=== PATIENT | female | born 1975 | race Caucasian/White ===

== ENCOUNTER 2019-01-07 20:33 | Emergency (ER) | payer OTHER ==
[2019-01-07 20:44] VITALS: BMI 26.5
[2019-01-07] MEDS ORDERED: RANITIDINE HCL 150 MG TABLET (FP) PO ONE (23:06)
[2019-01-07] MEDS ORDERED: IBUPROFEN 600 MG TABLET (FP) PO ONE (23:06)
--- NOTE | 2019-01-07 23:09 | PDOC ---
History of Present Illness - General Chief Complaint: Chest Pain Stated Complaint: CHEST PAIN Time Seen by Provider: 01/07/19 22:43 History Source: Patient Exam Limitations: No Limitations - History of Present Illness Initial Comments: 01/07/19 22:04 Patient is a 43-year-old female with history of hypothyroid here with complaints of chest pain 3 days. States her pain is across the anterior chest which radiates to her back and described as a pressure 9/10. Also complains of a left-sided under her breasts chest pain which is burning 9/10 with no association with nausea or vomiting. States she has had dizziness, lightheadedness since this afternoon. 2 days ago took Advil pain goes away for 2 hours and returns. No prior episode of this type of pain. She is not on control, no recent travel, no leg swelling. Family history negative for CVA/MN/ PE/DVT. PMD: Dr. Castro PMHx: Hypothyroid, C/S 3, thyroidectomy, carpal tunnel surgery, ALL: None GENERAL/CONSTITUTIONAL: No fever or chills. No weakness. No weight change. HEAD, EYES, EARS, NOSE AND THROAT: No change in vision. No ear pain or discharge. No sore throat. CARDIOVASCULAR: (+) chest pain or shortness of breath.] RESPIRATORY: No cough, wheezing, or hemoptysis. GASTROINTESTINAL: No nausea, vomiting, diarrhea or constipation. No rectal bleeding. GENITOURINARY: No dysuria, frequency, or change in urination. MUSCULOSKELETAL: (+) joint or muscle swelling or pain. No neck or back pain. SKIN AND BREASTS: No rash or easy bruising. NEUROLOGIC: No headache, vertigo, loss of consciousness, or loss of sensation. PSYCHIATRIC: No depression or anxiety. ENDOCRINE: No increased thirst. No abnormal weight change. HEMATOLOGIC/LYMPHATIC: No anemia, easy bleeding, or history of blood clots. ALLERGIC/IMMUNOLOGIC: No hives or skin allergy. No latex allergy. GENERAL: The patient is awake, alert, and fully oriented, in no acute distress. HEAD: Normal with no signs of trauma. EYES: Pupils equal, round and reactive to light, extraocular movements intact, sclera anicteric, conjunctiva clear. ENT: Ears normal, nares patent, oropharynx clear without exudates. Moist mucous membranes. NECK: Normal range of motion, supple without lymphadenopathy, JVD, or masses. LUNGS: Breath sounds equal, clear to auscultation bilaterally. No wheezes, and no crackles. HEART: Regular rate and rhythm, normal S1 and S2 without murmur, rub. ABDOMEN: Soft, nontender, normoactive bowel sounds. No guarding, no rebound. No masses. EXTREMITIES: Normal range of motion, no edema. No clubbing or cyanosis. No cords, erythema, or tenderness. NEUROLOGICAL: Cranial nerves II through XII grossly intact. Normal speech, normal gait. PSYCH: Normal mood, normal affect. SKIN: Warm, Dry, normal turgor, no rashes or lesions noted. Past History - Past Medical History Allergies/Adverse Reactions: Allergies Allergy/AdvReac Type Severity Reaction Status Date / Time No Known Allergies Allergy Verified 01/07/19 20:44 Home Medications: Ambulatory Orders Levothyroxine [Synthroid -] 100 mcg PO DAILY 11/03/14 Omeprazole [Prilosec (RX)] 20 mg PO DAILY 11/03/14 Ibuprofen [Motrin -] 400 mg PO QID PRN #28 tablet 12/13/14 Anemia: Yes COPD: No Thyroid Disease: Yes (hypothyroid) - Surgical History Abdominal Surgery: Yes (polyp removed in stomach) - Immunization History Immunization Up to Date: Yes - Suicide/Smoking/Psychosocial Hx Smoking History: Never smoked Have you smoked in the past 12 months: No Information on smoking cessation initiated: No Hx Alcohol Use: No Drug/Substance Use Hx: No Substance Use Type: None *Physical Exam - Vital Signs Last Vital Signs Temp Pulse Resp BP Pulse Ox 98.1 F 83 18 128/81 98 01/08/19 00:27 01/08/19 00:27 01/08/19 00:27 01/08/19 00:27 01/08/19 00:27 Moderate Sedation - Procedure Monitoring Vital Signs: Procedure Monitoring Vital Signs Temperature 98.1 F 01/08/19 00:27 Pulse Rate 83 01/08/19 00:27 Respiratory Rate 18 01/08/19 00:27 Blood Pressure 128/81 01/08/19 00:27 O2 Sat by Pulse Oximetry (%) 98 01/08/19 00:27 ED Treatment Course - LABORATORY CBC & Chemistry Diagram: 01/07/19 23:15 01/07/19 23:15 - ADDITIONAL ORDERS Additional order review: Laboratory Results 01/07/19 01/07/19 23:20 23:15 Sodium 139 Potassium 3.9 Chloride 106 Carbon Dioxide 28 Anion Gap 5 L BUN 13 Creatinine 0.8 Creat Clearance w eGFR 77.57 Random Glucose 103 Calcium 9.2 Total Bilirubin 0.2 AST 14 L ALT 28 Alkaline Phosphatase 79 Creatine Kinase 63 Troponin I < 0.02 Total Protein 7.4 Albumin 3.6 Lipase 192 TSH 1.69 Serum , Qual Negative 01/07/19 23:15 RBC 4.76 MCV 85.1 MCHC 34.4 RDW 13.9 D MPV 3.0 L Neutrophils % 44.4 Lymphocytes % 43.6 H D Monocytes % 9.5 Eosinophils % 1.7 Basophils % 0.8 - RADIOLOGY Radiology Studies Ordered: Category Date Time Status CHEST PA & LAT [RAD] Stat Radiology 01/08/19 00:07 Taken - Medications Given in the ED: ED Medications Discontinued Medications Generic Name Dose Route Start Last Admin Trade Name Freq PRN Reason Stop Dose Admin Al Hydroxide/Mg Hydroxide 30 ml 01/08/19 00:29 01/08/19 00:50 Mylanta Oral Suspension - PO 01/08/19 00:30 30 ml ONCE ONE Administration Ibuprofen 600 mg 01/07/19 23:06 01/08/19 00:50 Motrin - PO 01/07/19 23:07 Not Given ONCE ONE Ranitidine HCl 300 mg 01/07/19 23:06 01/08/19 00:50 Zantac - PO 01/07/19 23:07 300 mg ONCE ONE Administration Medical Decision Making - Medical Decision Making 01/07/19 22:04 Patient is a 43-year-old female with history of hypothyroid here with complaints of chest pain 3 days. States her pain is across the anterior chest which radiates to her back and described as a pressure 9/10. Also complains of a left-sided under her breasts chest pain which is burning 9/10 with no association with nausea or vomiting. States she has had dizziness, lightheadedness since this afternoon. 2 days ago took Advil pain goes away for 2 hours and returns. No prior episode of this type of pain. She is not on control, no recent travel, no leg swelling. Family history negative for CVA/MN/ PE/DVT. Patient with atypical chest pain, no concerns for ACS, she is PERC negative thus no concerns for PE. Most likely GI will give Zantac. Labs include troponin, EKG, chest x-ray. EKG: SR rate 18, NAD, no ST-T wave changes Troponin is negative no acute findings on lab work, normal TSH. Chest x-ray negative for acute disease Selected Entries 01/08/19 00:27 Temperature 98.1 F Pulse Rate [ 83 Right Apical] Respiratory 18 Rate Blood Pressure 128/81 [Left Arm] O2 Sat by Pulse 98 Oximetry (%) I discussed the physical exam findings, ancillary test results and final diagnoses with the patient. I answered all of the patient's questions. The patient was satisfied with the care received and felt comfortable with the discharge plan and treatment plan. The Patient agrees to follow up with the primary care physician within 24-72 hours. *DC/Admit/Observation/Transfer Diagnosis at time of Disposition: Chest pain Qualifiers: Chest pain type: unspecified Qualified Code(s): R07.9 - Chest pain, unspecified - Discharge Dispostion Disposition: HOME Condition at time of disposition: Stable - Referrals - Patient Instructions Printed Discharge Instructions: DI for Atypical Chest Pain Additional Instructions: Your Discharge Instructions: You must call primary care physician within 24 hours to arrange follow-up. Return to the Emergency Department with any new, persistent or worsening symptoms, for fever, chills, SOB, dizziness or any other concerning changes that may occur. He was follow-up with her primary care doctor for further evaluation if her chest pain continuous. - Post Discharge Activity
[2019-01-07 23:27] LABS: BASO % 0.8 % (0-2.0); EOS % 1.7 % (0-4.5); HEMATOCRIT 40.5 % (32.4-45.2); HEMOGLOBIN 13.9 GM/dL (10.7-15.3); LYMPH % 43.6 % (8-40); MCH 29.2 pg (25.7-33.7); MCHC 34.4 g/dl (32.0-36.0); MEAN CELL VOLUME 85.1 fl (80-96); MONO % 9.5 % (3.8-10.2); NEUT % 44.4 % (42.8-82.8); RBC 4.76 M/mm3 (3.60-5.2); RDW 13.9 % (11.6-15.6); WHITE BLOOD COUNT 4.7 K/mm3 (4.0-10.0)
[2019-01-07 23:58] LABS: PLATELET COUNT 273 K/MM3 (134-434); PLATELET ESTIMATE ADEQUATE
[2019-01-08 00:03] LABS: ALBUMIN 3.6 g/dl (3.4-5.0); ALK PHOS 79 U/L (45-117); ANION GAP 5 MMOL/L (8-16); BILIRUBIN,TOTAL 0.2 mg/dL (0.2-1); BLOOD UREA NITROGEN 13 mg/dL (7-18); CALCIUM 9.2 mg/dL (8.5-10.1); CHLORIDE 106 mmol/L (98-107); CO2 28 mmol/L (21-32); CREATININE 0.8 mg/dL (0.55-1.3); GLUCOSE,RANDOM 103 mg/dL (74-106); LIPASE 192 U/L (73-393); POTASSIUM 3.9 mmol/L (3.5-5.1); SGOT/AST 14 U/L (15-37); SGPT/ALT 28 U/L (13-61); SODIUM 139 mmol/L (136-145); TOT PROT 7.4 g/dl (6.4-8.2)
[2019-01-08 00:29] VITALS: BP 128/81; PULSE 83; TEMP 98.1
[2019-01-08] MEDS ORDERED: MAG HYDROX/AL HYDROX/SIMETH 30 ML UNIT-DOSE CUP PO ONE (00:29)
[2019-01-08] MEDS ORDERED: RANITIDINE HCL 150 MG TABLET (FP) ONE (00:31)
[2019-01-08] MEDS ORDERED: MAG HYDROX/AL HYDROX/SIMETH 30 ML UNIT-DOSE CUP ONE (00:31)
--- NOTE | 2019-01-08 10:12 | EKG ---
Test Reason : Blood Pressure : / mmHG Vent. Rate : 080 BPM Atrial Rate : 080 BPM P-R Int : 156 ms QRS Dur : 082 ms QT Int : 382 ms P-R-T Axes : 073 028 029 degrees QTc Int : 440 ms NORMAL SINUS RHYTHM POSSIBLE LEFT ATRIAL ENLARGEMENT BORDERLINE ECG WHEN COMPARED WITH ECG OF 13-DEC-2014 16:55, NO SIGNIFICANT CHANGE WAS FOUND Confirmed by GEORGE HODGE MD ([id number]) on 01/08/2019 10:12:12 AM Referred By: Confirmed By:GEORGE HODGE MD
== END 2019-01-08 00:52 | disposition home or self-care (01) ==
LOC: JER 20:33
DX: R07.9 Chest pain, unspecified (principal); E03.9 Hypothyroidism, unspecified
CPT/HCPCS: 36415; 71046-TC-FY; 80053; 82550; 83690; 84443; 84484; 84703; 85025; 93005; 93010; 99281-25

== ENCOUNTER 2019-09-03 07:57 | Emergency (ER) | payer OTHER ==
[2019-09-03 08:03] VITALS: TEMP 98.1; BMI 28.3
--- NOTE | 2019-09-03 08:46 | PDOC ---
History of Present Illness - General Chief Complaint: Vaginal Bleeding Stated Complaint: ABDOMINAL AND BACK PAIN,HEAVY BLEEDING Time Seen by Provider: 09/03/19 08:29 - History of Present Illness Initial Comments: Nithya Koehler is a 44yo woman who presents with one month of light vaginal bleeding that has worsened over the past 3 days. She states that she noticed spotting about a month ago, and she initially thought it was her period. When the bleeding did not stop she attempted to make an appointment with her scrap drop operator but was unable to do so. She saw her PMD and was given an unknown medication for 4 days that stopped the bleeding. As soon as she stopped taking the medication, the bleeding returned heavier than before. Ms Koehler reports that over the past 3 days, the bleeding has been increasingly heavy; she has needed to change her pad every 15-20 minutes today. She additionally reports low abdominal and low back cramping pain over the past 3. She denies any fever, chills, dysuria, change in bowel habits, or other recent symptoms. She reports that she had a procedure to prevent years ago but is not sure what it was. Past History - Past Medical History Allergies/Adverse Reactions: Allergies Allergy/AdvReac Type Severity Reaction Status Date / Time No Known Allergies Allergy Verified 01/07/19 20:44 Home Medications: Ambulatory Orders Levothyroxine [Synthroid -] 100 mcg PO DAILY 11/03/14 Omeprazole [Prilosec (RX)] 20 mg PO DAILY 11/03/14 Ibuprofen [Motrin -] 400 mg PO QID PRN #28 tablet 12/13/14 Anemia: Yes COPD: No Thyroid Disease: Yes (hypothyroid) - Surgical History Abdominal Surgery: Yes (polyp removed in stomach) - Immunization History Immunization Up to Date: Yes - Psycho Social/Smoking Cessation Hx Smoking History: Never smoked Have you smoked in the past 12 months: No Information on smoking cessation initiated: No Hx Alcohol Use: No Drug/Substance Use Hx: No Substance Use Type: None Review of Systems - Review of Systems Comments:: General: No fevers, no chills, no weight or appetite change, no malaise HEENT: No changes in vision, no changes in hearing, no congestion, no sore throat CV: No chest pain, no palpitations, no LE edema Pulm: No SOB, no cough, no wheezing GI: No nausea or vomiting, no change in bowel habits, no melena : No frequency, no urgency, no dysuria Musc: No back pain, no joint swelling, no recent injury Skin: No rash, no lesions, no erythema Endo: No excessive thirst, no heat/cold intolerance Heme: No unusual bruising or bleeding, no swollen glands Neuro: No syncope, no numbness/tingling, no focal weakness Vasc: No claudication Psych: No recent change in mood, no SI or HI *Physical Exam - Vital Signs Last Vital Signs Temp Pulse Resp BP Pulse Ox 98.1 F 93 H 16 109/65 99 09/03/19 07:59 09/03/19 07:59 09/03/19 07:59 09/03/19 07:59 09/03/19 07:59 - Physical Exam Comments: General: Comfortable, no acute distress HEENT: Atraumatic, PERRL, EOMI, MMM, voice normal Cards: RRR, no murmur appreciated Pulm: Comfortable on room air, clear to auscultation bilaterally Abd: Soft, mild suprapubic and b/l lower abdominal tenderness to deep palpation , nondistended : No CVA tenderness. Normal external genitalia. Vaginal canal w/ pooling dark red blood, no CMT, no adnexal TTP Ext: Atraumatic. No LE edema. ROM intact. WWP Skin: Normal color, no rashes or lesions Neuro: A&Ox3, CN grossly intact, normal speech, motor/sensory grossly intact and symmetric Psych: Mood appropriate to situation ED Treatment Course - LABORATORY CBC & Chemistry Diagram: 09/03/19 09:21 09/03/19 09:21 Medical Decision Making - Medical Decision Making 09/03/19 08:48 Nithya Koehler is a 44yo woman who presents with one month of light vaginal bleeding that has worsened over the past 3 days, now requiring that she change her pad every 15-20 minutes today. She states that she was given a medication by her PMD for several days that stopped the bleeding last week but is unsure what it was. - Ddx includes normal menstruation, beginning of perimenopause, ( ectopic or miscarriage), fibroids. Less likely ovarian pathology without localized pain - CBC, CMP, coags, T&S, preg 09/03/19 10:08 - CBC, coags, chemistry unremarkable. Hgb 14.4, no anemia currently - Preg pending - TVUS to be completed 09/03/19 11:19 - TVUS completed. Indicates small right ovarian cyst 1.4 x 0.5cm but no other abnormalities - Preg negative - Will reassess, d/c to follow up with her PMD and gynecology if feeling improved 09/03/19 11:32 - Pain has now resolved - Discussed follow up with gynecology, PMD. Discussed return precautions. Pt understands and agrees with this plan Discussed with Dr Jenniffer Preciado PGY2 Discharge - Discharge Information Problems reviewed: Yes Clinical Impression/Diagnosis: Vaginal bleeding Condition: Stable Disposition: HOME - Admission No - Follow up/Referral Referrals: Jitendra Whittaker [Primary Care Provider] - - Patient Discharge Instructions Patient Printed Discharge Instructions: Menopause, DI for Vaginal Bleeding Additional Instructions: Discharge Instructions: You were seen in the emergency department for vaginal bleeding. Your blood tests and ultrasound did not show any concerning findings. - Your bleeding should stop within a few days. Treat this like a regular period unless your symptoms change. - Please make an appointment to see your scrap drop operator within the next week - Seek immediate care for worsening symptoms, if your bleeding does not improve within 3-4 days, you become lightheaded, you have racing heart or palpitations, you have difficulty breathing, or you have any other medical emergency. - Post Discharge Activity
[2019-09-03] MEDS ORDERED: ACETAMINOPHEN 325 MG TABLET (FP) PO ONE (09:03)
[2019-09-03] MEDS ORDERED: ACETAMINOPHEN 325 MG TABLET (FP) ONE (09:10)
[2019-09-03 09:37] LABS: BASO % 0.6 % (0-2.0); EOS % 1.1 % (0-4.5); HEMATOCRIT 42.7 % (32.4-45.2); HEMOGLOBIN 14.4 GM/dL (10.7-15.3); LYMPH % 33.6 % (8-40); MCH 29.4 pg (25.7-33.7); MCHC 33.7 g/dl (32.0-36.0); MEAN CELL VOLUME 87.1 fl (80-96); MEAN PLT VOLUME 9.1 fl (7.5-11.1); MONO % 10.5 % (3.8-10.2); NEUT % 54.2 % (42.8-82.8); PLATELET COUNT 296 K/MM3 (134-434); RDW 14.2 % (11.6-15.6); WHITE BLOOD COUNT 3.8 K/mm3 (4.0-10.0)
[2019-09-03 09:49] LABS: INR 0.94 (0.83-1.09); PROTHROMBIN TIME (PATIENT) 11.1 SEC (9.7-13.0)
[2019-09-03 09:52] LABS: ACTIVATED PTT 33.7 SECONDS (25.2-36.5)
[2019-09-03 10:01] LABS: URINE APPEARANCE BLOODY; URINE COLOR RED
[2019-09-03 10:05] LABS: ALBUMIN 3.7 g/dl (3.4-5.0); BILIRUBIN,TOTAL 0.5 mg/dL (0.2-1); CREATININE 0.8 mg/dL (0.55-1.3); TOT PROT 7.1 g/dl (6.4-8.2)
--- NOTE | 2019-09-03 10:27 | PDOC ---
Attending Attestation - Resident Resident Name: IlanaОльга - ED Attending Attestation I have performed the following: I have examined & evaluated the patient, The case was reviewed & discussed with the resident, I agree w/resident's findings & plan, Exceptions are as noted - HPI HPI: 09/03/19 10:24 44 F with h/o hypothyroidism presenting to ED with vaginal bleeding. Pt states she has irregular and heavy menses. Is on her period now and has been bleeding now for approx 4 days. Endorses suprapubic cramping. Denies F/C. - Physicial Exam PE: 09/03/19 10:27 "GENERAL: Awake, alert, and fully oriented, in no acute distress. HEAD: No signs of trauma EYES: PERRLA, EOMI, sclera anicteric, conjunctiva clear ENT: Auricles normal inspection, hearing grossly normal, nares patent, oropharynx clear without exudates. Moist mucosa NECK: Nontender, no stepoffs, Normal ROM, supple, no lymphadenopathy, JVD, or masses LUNGS: Breath sounds equal, clear to auscultation bilaterally. No wheezes, and no crackles HEART: Regular rate and rhythm, normal S1 and S2, no murmurs, rubs or gallops ABDOMEN: Soft, nontender, normoactive bowel sounds. No guarding, no rebound. No masses EXTREMITIES: Normal range of motion, no edema. No clubbing or cyanosis. No cords, erythema, or tenderness NEUROLOGICAL: Cranial nerves II through XII intact. 5/5 strength and sensation in all extremities, Normal speech, normal gait, normal cerebellar function SKIN: Warm, Dry, normal turgor, no rashes or lesions noted. - Medical Decision Making 09/03/19 10:27 44 F with vaginal bleeding. Benign abdominal exam. - Labs, UPT - TVUS 09/03/19 11:22 Labs, US unremarkable Pt is well appearing, with normal vitals. Clinically stable for DC at this time. I discussed the physical exam findings, ancillary test results and final diagnoses with the patient. I answered all of the patient's questions. The patient was satisfied with the care received and felt comfortable with the discharge plan and treatment plan. The patient agrees to follow up with the primary care physician within 24-72 hours.
[2019-09-03 11:11] LABS: URINE BACTERIA NONE SEEN /hpf (NEGATIVE); URINE RBC >100 /hpf (0-4); URINE WBC NONE SEEN /hpf (0-5)
[2019-09-03 11:53] VITALS: BP 107/82; PULSE 89
== END 2019-09-03 11:53 | disposition home or self-care (01) ==
LOC: JER 07:57
DX: N93.8 Other specified abnormal uterine and vaginal bleeding (principal); N83.201 Unspecified ovarian cyst, right side; E03.9 Hypothyroidism, unspecified
CPT/HCPCS: 36415; 76830-TC; 80053; 81003; 84703; 85025; 85610; 85730; 86850; 86900; 86901; 87491; 87591; 99283-25

== ENCOUNTER 2023-11-17 09:33 | Emergency (ER) | payer OTHER ==
[2023-11-17 09:45] VITALS: BMI 28.3
[2023-11-17] MEDS ORDERED: ACETAMINOPHEN 1000 MG/100 ML BAG IVPB ONE (11:11)
[2023-11-17] MEDS ORDERED: SODIUM CHLORIDE 1,000 ML IV STA (11:11)
[2023-11-17] MEDS ORDERED: ONDANSETRON 4 MG/2 ML VIAL IVPUSH ONE (11:11)
[2023-11-17] MEDS ORDERED: ONDANSETRON 4 MG/2 ML VIAL ONE (11:12)
[2023-11-17] MEDS ORDERED: ACETAMINOPHEN INJECTION 100 ML IVPB ONE (11:12)
[2023-11-17 11:44] LABS: BASO % 0.8 % (0-2.0); EOS % 1.2 % (0-4.5); HEMOGLOBIN 14.6 GM/dL (10.7-15.3); LYMPH % 35.8 % (8-40); MCH 28.8 pg (25.7-33.7); MCHC 33.2 g/dl (32.0-36.0); MEAN CELL VOLUME 86.9 fl (80-96); MEAN PLT VOLUME 9.1 fl (7.5-11.1); MONO % 11.8 % (3.8-10.2); NEUT % 50.4 % (42.8-82.8); PLATELET COUNT 347 10^3/uL (134-434); RBC 5.06 M/mm3 (3.60-5.2); WHITE BLOOD COUNT 4.7 K/mm3 (4.0-10.0)
[2023-11-17 11:55] LABS: POTASSIUM 4.2 mmol/L (3.5-5.1)
[2023-11-17 11:57] LABS: ALBUMIN 3.8 g/dl (3.4-5.0); BLOOD UREA NITROGEN 16.8 mg/dL (7-18); CALCIUM 9.6 mg/dL (8.5-10.1)
[2023-11-17 12:00] LABS: CREATININE 0.8 mg/dL (0.55-1.3)
[2023-11-17 12:02] LABS: BILIRUBIN,TOTAL 0.4 mg/dL (0.2-1); TOT PROT 7.8 g/dl (6.4-8.2)
[2023-11-17 12:41] LABS: EPI CELLS 2 /uL (0-25.1); HYALINE CASTS 0 /uL (0-3.1); URINE APPEARANCE CLEAR; URINE BACTERIA 300 /uL (0-1359); URINE BILIRUBIN NEGATIVE (NEGATIVE); URINE COLOR YELLOW; URINE GLUCOSE (UA) NEGATIVE (NEGATIVE); URINE KETONE NEGATIVE (NEGATIVE); URINE LEUK ESTERASE NEGATIVE (NEGATIVE); URINE NITRITE NEGATIVE (NEGATIVE); URINE PROTEIN NEGATIVE (NEGATIVE); URINE RBC 124 /uL (0-23.9); URINE UROBILINOGEN 0.2 mg/dL (0.2-1.0); URINE WBC 17 /uL (0-25.8)
[2023-11-17] MEDS ORDERED: valACYclovir HCL 500 MG TABLET (FP) PO ONE (13:13)
[2023-11-17] MEDS ORDERED: valACYclovir HCL 500 MG TABLET (FP) ONE (13:24)
[2023-11-17 13:33] VITALS: BP 127/72; PULSE 72; RESP 20; TEMP 97.5
== END 2023-11-17 13:33 | disposition home or self-care (01) ==
LOC: JER 09:33
PROC: 3E033NZ Introduction of Analgesics, Hypnotics, Sedatives into Peripheral Vein, Percutaneous Approach (ICD-10-PCS; principal; 2023-11-17)
PROC: 3E033GC Introduction of Other Therapeutic Substance into Peripheral Vein, Percutaneous Approach (ICD-10-PCS; 2023-11-17)
PROC: 3E0337Z Introduction of Electrolytic and Water Balance Substance into Peripheral Vein, Percutaneous Approach (ICD-10-PCS; 2023-11-17)
DX: R10.12 Left upper quadrant pain (principal); R11.0 Nausea; B02.9 Zoster without complications
CPT/HCPCS: 36415; 76705-TC; 80053; 81003; 83690; 84484; 84703; 85025; 87086; 93005; 93010; 96361; 96374; 96375; 99285-25; J0131